=== PATIENT | female | born 2005 | race Two or more races ===

== ENCOUNTER 2024-09-17 01:40 | Emergency (ER) | payer SELFPAY ==
[~2024-09-17] VITALS: Ht 165.1 cm; Wt 54.5 kg
[2024-09-17 02:06] VITALS: TEMP 98.4
[2024-09-17 03:31] LABS: BASOPHILS % (AUTO) 0.9 % (0.0-2.0); EOSINOPHILS % (AUTO) 2.7 % (1.0-6.0); HEMATOCRIT 35.4 % (36-46); HEMOGLOBIN 11.5 g/dL (12.0-16.0); LYMPHOCYTES # (AUTO) 2.4 K/uL (1.0-4.8); LYMPHOCYTES % (AUTO) 29.6 % (22.0-44.0); MEAN CORPUSCULAR HEMOGLOBIN 26.6 pg (26.0-34.0); MEAN CORPUSCULAR HGB CONC 32.4 G/dL (31.0-37.0); MEAN CORPUSCULAR VOLUME 82 fL (80-100); MONOCYTES # (AUTO) 0.5 K/uL (0.1-1.0); MONOCYTES % (AUTO) 5.9 % (2.0-9.0); NEUTROPHILS % (AUTO) 60.9 % (40.0-70.0); PLATELET COUNT (AUTO) 204 K/uL (150-450); RED BLOOD CELL COUNT(AUTO) 4.31 MIL/uL (4.00-5.20); RED CELL DISTRIBUTION WIDTH 15.2 % (11.5-14.5); WHITE BLOOD COUNT (AUTO) 8.2 K/uL (4.5-11.0)
[2024-09-17 03:31] LABS: APPEARANCE,URINE CLEAR (CLEAR); BILIRUBIN,URINE NEGATIVE (NEGATIVE); COLOR,URINE YELLOW (YELLOW); GLUCOSE, URINE (UA) NEGATIVE (NEGATIVE); KETONES,URINE NEGATIVE (NEGATIVE); LEUKOCYTE ESTERASE ,URINE TRACE (NEGATIVE); NITRATE,URINE NEGATIVE (NEGATIVE); OCCULT BLOOD,URINE NEGATIVE (NEGATIVE); PH,URINE 5.5 (5.0-8.0); PROTEIN,URINE TRACE mg/dL (NEGATIVE); SPECIFIC GRAVITIY, URINE 1.028 (1.003-1.030); UROBILINOGEN,URINE <=1.0 mg/dL (<=1.0)
[2024-09-17 03:43] LABS: ANION GAP 6 mmol/L (8-16); CALCIUM, TOTAL 9.1 mg/dL (8.8-10.5); CARBON DIOXIDE 28 mmol/L (22-29); CHLORIDE 104 mmol/L (98-107); GLOMERULAR FILTR. RATE CALC > 60 mL/min (>60); GLUCOSE,RANDOM 92 mg/dL (70-110); POTASSIUM 3.8 mmol/L (3.5-5.1); SODIUM SERUM 138 mmol/L (136-145); UREA NITROGEN, BLOOD 10 mg/dL (7-18)
[2024-09-17 03:45] LABS: BACTERIA,URINE Moderate /HPF (None Seen); RBC,URINE 0-2 /HPF (0-2); SQUAMOUS EPITHELIAL CELL,UR Few /LPF (None Seen)
[2024-09-17] MEDS: CefTRIAXone SODIUM 1 GM/VIAL IM ONE (04:25)
[2024-09-17] MEDS: OMEPRAZOLE 20 MG CAPSULE PO ONE (04:26)
[2024-09-17] MEDS: ACETAMINOPHEN 500 MG TABLET PO ONE (04:26)
[2024-09-17] MEDS: LIDOCAINE/PF 1% 2 ML VIAL IM ONE (04:26)
[2024-09-17] MEDS: DOXYCYCLINE HYCLATE 100 MG TABLET PO ONE (04:26)
[2024-09-17] MEDS: IBUPROFEN 600 MG TABLET PO ONE (04:28)
[2024-09-17] MEDS ORDERED: IBUP-1554 PO (04:37)
[2024-09-17] MEDS ORDERED: OMEP20 PO (04:37)
[2024-09-17] MEDS ORDERED: DOXY-354 PO (04:37)
[2024-09-17] MEDS ORDERED: ACET-66 PO (04:37)
[2024-09-17 04:52] VITALS: BP 115/78; PULSE 75; RESP 16; O2SAT 100
== END 2024-09-17 04:52 | disposition home or self-care (01) ==
LOC: EMS 01:43
DX: N83.201 Unspecified ovarian cyst, right side (principal); N94.6 Dysmenorrhea, unspecified; K52.9 Noninfective gastroenteritis and colitis, unspecified; F12.90 Cannabis use, unspecified, uncomplicated
CPT/HCPCS: 99284; 80048; 81001; 84703; 85025; 87086; 36415; J0696; J3490